=== PATIENT | female | born 1945 | race Caucasian/White ===

== ENCOUNTER → 2021-04-24 12:30 | Outpatient (CLI) | payer MEDICARE, OTHER, SELFPAY ==
--- NOTE | 2021-04-24 | DI.US.S_ITS ---
PROCEDURE: US RENAL COMPLETE INDICATIONS: CHRONIC KIDNEY DISEASE STAGE 3B TECHNIQUE: Real-time scanning was performed of the kidneys and bladder, with image documentation. COMPARISON: None. FINDINGS: Kidneys: Kidneys are normal in size. Right kidney measures 9.0 cm long; left kidney measures 9.6 cm long. Right renal cortical thickness is 1.2 cm; left renal cortical thickness is 1.1 cm. Renal cortical echotexture is normal. No hydronephrosis or nephrolithiasis. No suspicious solid mass lesions. Bladder: Pre-void bladder volume is 134 mL. Post-void residual is 0 mL. Pre-void images demonstrate no intraluminal masses or stones. On pre-void images, bilateral ureteral jets are noted with color Doppler interrogation. (Of note, ureteral jets may not be detectable in up to 25% of cases due to insufficient differences in specific gravity between ureteral and bladder urine). Miscellaneous: No free pelvic fluid. IMPRESSION: Normal size kidneys with no evidence of hydronephrosis. Dictated by: Steve Yanes M.D. on 04/24/2021 at 14:12 Approved by: Steve Yanes M.D. on 04/24/2021 at 14:15
[2021-04-24 13:56] LABS: Add Manual Diff / Slide Review NO; Basophils Absolute Auto 100 /uL (0-100); Eosinophils Absolute Auto 500 /uL (0-450); Eosinophils Percent Auto 6.3 % (2-4); Hematocrit 35.7 % (36-46); Hemoglobin 11.7 g/dL (12.0-16.0); Lymphocytes Absolute Auto 1500 /uL (1100-4500); Lymphocytes Percent Auto 19.4 % (25-40); Mean Corpuscular HGB Conc 32.7 % (30-36); Mean Corpuscular Hemoglobin 30.5 PG (26-34); Mean Corpuscular Volume 93.3 fL (80-100); Monocytes Absolute Auto 600 /uL (0-900); Monocytes Percent Auto 7.7 % (3-14); Neutrophils Absolute Auto 5100 /uL (1500-7000); Neutrophils Percent Auto 65.6 % (50-75); Platelet Count 274 X10^3/uL (150-400); Red Blood Cell Count 3.83 X10^6/uL (4.0-5.2); Red Cell Distribution Width 13.7 % (11.6-14.8); White Blood Cell Count 7.8 X10^3/uL (4.5-11.0)
[2021-04-24 14:14] LABS: Albumin 4.2 g/dL (3.5-5.0); BUN Creatinine Ratio 19.8 (6-22); Blood Urea Nitrogen 33 mg/dL (7-17); Calcium 9.6 mg/dL (8.4-10.2); Carbon Dioxide 21 mmol/L (22-32); Chloride 109 mmol/L (98-107); Estimated Glomerular Filt Rate 29.8 mL/min (>60); Glucose 103 mg/dL (80-110); HEMOLYSIS < 15 (0-50); Phosphorous 4.4 mg/dL (2.8-4.1); Potassium 5.1 mmol/L (3.4-5.1); Sodium 138 mmol/L (137-145)
[2021-04-25 06:18] LABS: Parathyroid Hormone Int 54 pg/mL (15-65)
== END ==
PROVIDERS: Family Provider Family Medicine; PCP Physician Assistant Medical; Referring Provider Internal Medicine Nephrology; Visit Provider Internal Medicine Nephrology
DX: N18.32 Chronic kidney disease, stage 3b (principal)
CPT/HCPCS: 36415; 76770; 80069; 83970; 85025

== ENCOUNTER → 2021-07-09 12:27 | Outpatient (CLI) | payer MEDICARE, OTHER, SELFPAY ==
--- NOTE | 2021-07-09 12:39 | DIET.PN1 ---
Dietary Progress Note Assessment: 75y F attending RD visit for help with diet to support her new diagnosis of Chronic Kidney Disease stage 3. Pt has osteoarthritis, took Aleve daily for 20y, has preDM (FBG 101) took metformin x20y even after BG was well controlled, accounts payable lead feels these are contributing to CKD3. Pt learned she had CKD3 in March 2021 and saw accounts payable lead went on WW and lost 70# x5y ago and kept off, weight loss efforts spurred by divorce and associated weight gain Pt has diverticulosis-when in flare has potatoes, rice, toast Pt of descent, many tomato based dishes. PCP reduced Spironolactone to 1/2 pill daily to protect renal health as pt has hyperkalemia over last two sets of renal labs, this medication can cause hyperkalemia. Usual Day: B: egg with piece toast, yogurt almost every morning c coffee c cream (was using non-dairy creamer) L: salad with chicken or beef occasionally fish and chips and hamburger D: meat c vegetable (broccoli, cauliflower, brussels sprout), stirfry, occasionally baked potatoes or oven fries loved Coke Zero but stopped drinking completely recently. Mattress Specialist suggested no avocado, tomato, potatoes, oranges, banana but no advice nutritionally beyond this. Labs: eGFR 31-38 L, Cr 1.4 H, K+ 5.3-5.5 H Nutrition Diagnosis: altered nutrition related laboratory values (K+, Cr, eGFR) r/t renal nutrition related knowledge deficit aeb pt newly dx CKD3, pt using advice on internet to try to piece together diet, eGFR 31-38 L, Cr 1.4 H, K+ 5.3-5.5 H. Interventions: 1. Using [employer] and [facility] Renal Diet Plate handout, educated pt on renal diet factors specific to her current labs: Focus on reduce added sodium in diet, discussed sources. Focus on limiting protein to 6oz meat and an egg or yogurt daily for now, will follow lab trends to further increase/decrease allowance. Focus on limiting potassium to 2,000mg daily avoiding salt substitutes with potassium. This is a difficult category for pt secondary to her traditional foods being heavily tomato based. Reviewed and documented potassium levels in variety of tomato products, pt feels confident she can work through her normal recipes to be compliant. Discussed parboiling potatoes for 10 minutes and throwing away water before using to reduce K+. Focus on removing phos food additives from diet. EER: 2,000mg sodium and potassium daily Monitoring/Evaluations: pt will work with material for several weeks, has repeat labs next Wednesday and will call to schedule f/u prn. Electronically Signed by: Alaina aSntos 07/09/21 12:39 Clinical Dietitian [address] [id number]
== END ==
PROVIDERS: Family Provider Family Medicine; PCP Physician Assistant Medical; Referring Provider Physician Assistant Medical; Visit Provider Physician Assistant Medical
DX: N18.30 Chronic kidney disease, stage 3 unspecified (principal); R73.03 Prediabetes; Z71.3 Dietary counseling and surveillance; Z79.84 Long term (current) use of oral hypoglycemic drugs
CPT/HCPCS: 97802

== ENCOUNTER → 2022-01-30 13:41 | Outpatient (CLI) | payer MEDICARE, OTHER, SELFPAY ==
--- NOTE | 2022-01-30 | DI.CT.S_ITS ---
PROCEDURE: CT UE LT WO CON INDICATIONS: Pain in left shoulder TECHNIQUE: Noncontrast 1-1.5 mm thick sections acquired from the acromioclavicular joint to the inferior scapula, with coronal and sagittal reformatting. COMPARISON: None. FINDINGS: Image quality: Excellent. Bones: Moderate to severe glenohumeral joint osteoarthritic changes are seen with near complete loss of joint space, extensive subchondral sclerosis and cyst formation and prominent inferior marginal osteophyte formation. Mild to moderate acromioclavicular joint osteoarthritic changes are seen with joint space narrowing and subchondral sclerosis. No acute fracture or dislocation. No suspicious intraosseous lesion. Visualized left upper ribs are intact. Soft tissues: No significant joint effusion or calcified intra-articular loose body is seen. There is no abnormal soft tissue calcifications. No gross full-thickness rotator cuff tendon rupture. Mild supraspinatus muscle atrophy is seen on sagittal images. No left axillary lymphadenopathy by size criteria. Visualized left lung field is clear. IMPRESSION: 1. Moderate to severe glenohumeral joint osteoarthritis and mild to moderate acromioclavicular joint osteoarthritis. No fracture or dislocation. No suspicious bony lesion. 2. No full-thickness rotator cuff tendon rupture. Mild supraspinatus muscle atrophy. No significant joint effusion. No abnormal soft tissue calcifications. Dictated by: Rui Cloud M.D. on 01/30/2022 at 15:08 Approved by: Rui Cloud M.D. on 01/30/2022 at 15:16
== END ==
PROVIDERS: Family Provider Family Medicine; PCP Physician Assistant Medical; Referring Provider Orthopaedic Surgery Foot and Ankle Surgery; Visit Provider Orthopaedic Surgery Foot and Ankle Surgery
DX: M25.512 Pain in left shoulder (principal)
CPT/HCPCS: 73200

== ENCOUNTER → 2022-02-26 12:57 | Outpatient (CLI) | payer MEDICARE, OTHER, SELFPAY ==
[2022-02-26 13:33] LABS: Add Manual Diff / Slide Review NO; Basophils Absolute Auto 100 /uL (0-100); Basophils Percent Auto 0.8 % (0-2); Eosinophils Absolute Auto 500 /uL (0-450); Hematocrit 35.7 % (36-46); Hemoglobin 11.7 g/dL (12.0-16.0); Lymphocytes Absolute Auto 1300 /uL (1100-4500); Lymphocytes Percent Auto 16.7 % (25-40); Mean Corpuscular HGB Conc 32.7 % (30-36); Mean Corpuscular Hemoglobin 30.3 PG (26-34); Mean Corpuscular Volume 92.6 fL (80-100); Monocytes Absolute Auto 700 /uL (0-900); Monocytes Percent Auto 8.3 % (3-14); Neutrophils Absolute Auto 5400 /uL (1500-7000); Neutrophils Percent Auto 68.2 % (50-75); Platelet Count 258 X10^3/uL (150-400); Red Blood Cell Count 3.86 X10^6/uL (4.0-5.2); Red Cell Distribution Width 13.7 % (11.6-14.8); White Blood Cell Count 7.9 X10^3/uL (4.5-11.0)
[2022-02-26 15:04] LABS: BUN Creatinine Ratio 20.5 (6-22); Blood Urea Nitrogen 30 mg/dL (7-17); Calcium 9.5 mg/dL (8.4-10.2); Carbon Dioxide 26 mmol/L (22-32); Chloride 106 mmol/L (98-107); Estimated Glomerular Filt Rate 37 mL/min (>60); Glucose 107 mg/dL (80-110); HEMOLYSIS < 15 (0-50); Potassium 4.8 mmol/L (3.4-5.1); Sodium 139 mmol/L (137-145)
== END ==
PROVIDERS: Family Provider Family Medicine; PCP Physician Assistant Medical; Referring Provider Orthopaedic Surgery; Visit Provider Orthopaedic Surgery
DX: Z01.812 Encounter for preprocedural laboratory examination (principal)
CPT/HCPCS: 36415; 80048; 85025

== ENCOUNTER → 2022-03-24 11:00 | Outpatient (CLI) | payer MEDICARE, OTHER, SELFPAY ==
[2022-03-24 11:33] LABS: COVID19 -Nasal RAPID Negative (Negative)
== END ==
PROVIDERS: Family Provider Family Medicine; PCP Physician Assistant Medical; Referring Provider Orthopaedic Surgery; Visit Provider Orthopaedic Surgery
DX: Z20.822 Contact with and (suspected) exposure to COVID-19 (principal)
CPT/HCPCS: 87635; C9803

== ENCOUNTER 2022-03-25 09:12 | Day surgery (SDC) | payer MEDICARE, OTHER, SELFPAY ==
[2022-03-18 10:50] VITALS: BMI 33.3
[2022-03-25] VITALS (10 sets, daily range): BP systolic 91–162; BP diastolic 60–99; PULSE 53–81; RESP 12–96; TEMP 35.8–36.6; O2SAT 94–98; BMI 33.3
--- NOTE | 2022-03-25 06:00 | DI.RAD.S_ITS ---
PROCEDURE: XR SHOULDER LT 1V INDICATIONS: total left shoulder TECHNIQUE: 1 views of the shoulder were acquired. COMPARISON: [facility], CR, XR SHOULDER 2+ VIEWS LEFT, 07/17/2021, 10:47. FINDINGS: Bones: Patient is status post left shoulder arthroplasty. Shoulder alignment is anatomic. Mild to moderate acromioclavicular joint osteoarthritic changes are seen. No suspicious bony lesions. Visualized ribs appear intact. Soft tissues: No suspicious soft tissue calcifications. IMPRESSION: Patient is status post left shoulder arthroplasty with anatomic left shoulder alignment. No fracture or dislocation. Acromioclavicular joint osteoarthritis. Dictated by: Rui Cloud M.D. on 03/25/2022 at 14:33 Approved by: Rui Cloud M.D. on 03/25/2022 at 14:35
[2022-03-25] MEDS: ACETAMINOPHEN 325 MG TABLET 975 MG PO (09:54)
[2022-03-25] MEDS: LACTATED RINGERS 1,000 ML 42 ML IV (09:59)
--- NOTE | 2022-03-25 10:45 | PM.PREOP ---
Pre-operative Note COVID-19 COVID-19 status: Negative Result date/Date tested (Pos, Neg/Pending): 03/24/22 Interval Note History & Physical reviewed/Exam performed by Physician: Yes Changes to H&P: No
--- NOTE | 2022-03-25 11:48 | SUR.PREOP ---
Block start time 1127. Monitoring initiated and maintained throughout procedure. Oxygen and medications given by anesthesiologist. Patient remained stable throughout procedure, no adverse reactions noted. Block end time 1140. Pt left for OR in stable condition.
[2022-03-25] MEDS: CEFAZOLIN 2 GM/20 ML SYRINGE IV (11:55)
[2022-03-25] MEDS: TRANEXAMIC ACID 1,000 MG VIAL 2000 MG INJ ×2 (12:01→13:29)
--- NOTE | 2022-03-25 12:18 | PM.PROC.1 ---
Procedures Date/Time Date of procedure: 03/25/22 Time of procedure: 11:30 General Procedure description: Ultrasound guided interscalene brachial plexus nerve block for post op pain control after left total shoulder arthroplasty by Dr. Alvarez. Risk and benefits of procedure discussed with patient. ASA monitoring applied to patient. O2 given via nasal cannula. 1 mg Versed and 50 mcg fentanyl given for procedural sedation. Skin site was prepped with chlorhexidine and allowed to fully dry. Sterile gloves, mask, hat and probe cover were used to maintain sterility. 2% lidocaine and 30ga needle was used to make a small skin wheal at needle insertion site. Under ultrasound guidance, a 21ga 50mm Pajunk needle was directed into the interscalene groove (middle/anterior scalenes) near the brachial plexus. Patient reported no parasthesias. After negative aspiration, 20 mL mixture of 0.5% ropivicaine, 1% lidocaine and 10mg dexamethasone were injected around brachial plexus. Patient tolerated procedure well.
--- NOTE | 2022-03-25 12:19 | SUR.OPER ---
Beach chair with Schlein shoulder positioner. Lower body on padded OR bed. gel pad under buttocks. Head in foam padded head cradle, secured with straps. Non-operative arm secured <90 degrees abduction across abdomen with Schlein Positioner kit. Pillow under knees. Gel pad under bilateral heels. Safety belt at thigh. Cloth tape over blanket over lower legs.
[2022-03-25] MEDS: EPINEPHrine 1 MG/ML 0.15 MG INJ (12:32)
[2022-03-25] MEDS: BUPIVACAINE 0.5% (PF) VIAL 30 ML INJ (12:33)
[2022-03-25] MEDS: THROMBIN (RECOMBINANT) 5,000 UNIT VIAL 5000 UNIT TOP (12:37)
--- NOTE | 2022-03-25 13:38 | PM.OP.1 ---
Operative Date/Time/Diagnoses Date of procedure: 03/25/22 Time of procedure: 13:10 Pre-op diagnosis: Left shoulder osteoarthritis Post-op diagnosis: same Procedure & Clinicians Procedure: Left total shoulder replacement Same procedure as scheduled: Yes Indications: The patient has had progressively worsening left shoulder pain with radiographic changes consistent with arthritis. Non-operative management has failed and the patient has requested total shoulder replacement. The risks, benefits and alternatives to surgery were discussed with the patient prior to proceeding. Risks discussed included, but were not limited to, failure to relieve pain, stiffness, infection, nerve damage, deep venous thrombosis, pulmonary embolism, stroke, coma, heart attack, permanent paralysis and , as well as the potential need for eventual revision of the prosthetic. Surgeon: Johnny Alvarez Family Development Extension Specialist: Gladys Mccallum Click Yes if Unassisted: No Anesthesia Type: General, Peripheral nerve block and Local Operative Notes Findings: Severe osteoarthritis with central glenoid wear and a large inferior humeral osteophyte. Closure Type: primary Specimen(s): none sent Prosthetic devices, grafts, tissues, transplants, or devices: Implants used in this procedure manufactured by the [employer] and included a size 46 all-polyethylene pegged glenoid with E +polyethylene, a 46 mm x 16 mm neutral humeral head and a size 2 canal sparing stem. Applied: implant(s) Estimated Blood Loss (mL): 100 Blood products transfused: none Procedure in detail: The patient was seen in the pre-operative area, where the patient identified the left shoulder as the operative site and this was marked with my initials. The patient received pre-operative antibiotics, underwent an interscalene block, and was taken to the operating room and placed on the operative table in the supine position. After satisfactory anesthesia, a full ?time out? was performed. The patient was repositioned in the ?beach chair? position using a dedicated positioner. All pressure points were well padded, and the knees were slightly bent to prevent tension on the sciatic nerves. The left arm was prepared from the fingers to the base of the neck with ChloroPrep in the usual fashion and draped through sterile drapes. An approximately 15 cm incision was created, starting at the clavicle above the coracoid process and extended towards the deltoid insertion. The deltopectoral interval was used to access the shoulder. The cephalic vein was taken laterally. A self retaining retractor was placed. The ?three sisters? were identified and cauterized. The axillary nerve was palpated and protected throughout the case. The biceps was released from its groove and tenodesed over the top of the pectoralis major tendon. The subscapularis was released from the lesser tuberosity with a subscapularis peel and tagged for later repair. The shoulder was dislocated and a cutting guide was used for the proximal humeral osteotomy in 30 degrees of retroversion. Osteophytes were removed. The guide pin was placed after sizing the proximal humerus. The collar Reamer was used. The trial broach was placed for a number 2 canal sparing stem. A proximal humeral protector was then placed. We then removed the self-retaining retractor and placed retractors to access the glenoid. The subscapularis was released with a ?360 degree release? with care being taken to protect the axillary nerve with the inferior portion of this procedure. The remnant of labrum and biceps stump were removed. The appropriate size reamer was chosen with the glenoid sizer, and the guide pin placed. The glenoid was appropriately reamed. The guide for the peripheral holes was used and the center hole enlarged. The trial glenoid was placed with good stability. We then cemented the final implant into place after irrigating the peg holes and drying them with thrombin-soaked Gelfoam. We returned our attention to the humerus, a trial humeral head was applied and a trial reduction performed. Stability was checked with 50% posterior translation with spontaneous reduction, 40? external rotation at the side with the subscapularis held in the repaired position and about 70? internal rotation in the ?scare north fork position?. This was felt to be satisfactory and the appropriate implants were opened. Four holes were drilled along the humeral osteotomy and #2 Ethibond sutures placed for eventual subscapularis repair. The medial strand of the sutures was placed through the ring on the prosthetic. The humeral prosthetic was impacted into the humerus. The humeral head was applied when the stem was still slightly proud and impacted to both seat the head and fully seat the stem. The joint was relocated one final time. The joint was irrigated and the subscapularis repaired to the previously placed sutures using Wade-Pro sutures. The top of the subscapularis was closed to the leading edge of the supraspinatus with a figure of 8 #2 Ethibond to close the rotator interval. The deltopectoral interval was closed with interrupted 0 Vicryl. The subcutaneous layer was closed with 3-0 Vicryl, and the skin with a running 3-0 V-Lock suture and SteriStrips. An Aquacel Ag dressing was applied, the patient?s arm was placed in a sling, and the patient was taken to recovery having tolerated the procedure well. Complications: none Post-operative Condition: stable Disposition: PACU Plan for aftercare: The patient will be maintained on a standard total shoulder protocol. She may use her arm in front of her body below shoulder level to lift 1-2 lb. She will be seen in my office in 2 weeks. She will likely be discharged tomorrow morning.
[2022-03-25] MEDS: OXYCODONE IR 5 MG TABLET PO ×3 (13:58→22:29)
[2022-03-25] MEDS: LACTATED RINGERS 1,000 ML 100 ML IV (14:43)
--- NOTE | 2022-03-25 15:55 | PC.NURSE ---
Pt arrived from PACU @ 1414 Alert/Oriented, SpO2 98% RA Aquacell dsg to left shoulder CDI. Med @ 1530 w/oxycodone for discomfort, with good relief. IVF LR @ 100cc/hr infusing into the right hand via pump w/o incidence. Stable post op course. Call light w/in reach, bed alarm on for pt safety. Continue w/plan of care.
[2022-03-25] MEDS: DOCUSATE 100 MG CAPSULE PO (21:05)
[2022-03-25] MEDS: ASPIRIN EC 81 MG TABLET PO (21:05)
[2022-03-25] MEDS: HYDRALAZINE 25 MG TABLET PO (21:05)
[2022-03-25] MEDS: GABAPENTIN 300 MG CAPSULE PO (21:05)
[2022-03-25] MEDS: ACETAMINOPHEN 325 MG TABLET 650 MG PO (23:58)
[2022-03-26] VITALS (7 sets, daily range): BP systolic 130–151; BP diastolic 56–67; PULSE 53–59; RESP 16–18; TEMP 36–36.1; O2SAT 96–97
[2022-03-26] MEDS: HYDROMORPHONE 2 MG TABLET PO (03:42)
[2022-03-26] MEDS: OXYCODONE IR 5 MG TABLET PO (04:46)
[2022-03-26 06:04] LABS: Hematocrit 34.2 % (36-46); Hemoglobin 11.3 g/dL (12.0-16.0)
--- NOTE | 2022-03-26 06:52 | P.DS_ITS ---
History of Present Illness History of Present Illness Date Patient Seen: 03/26/22 Time Patient Seen: 06:53 Chief complaint: OPB Narrative: The history and physical is contained in the chart in a previously completed note. Please refer to that note for this information. Discharge Providers Provider Date of admission: March 25, 2022 Discharge Date: 03/26/22 Primary care physician: Carissa Shah PA-C Consults: 03/25/22 14:03 Consult to Discharge Planning Routine Comment: Consult to Physical Therapy Evaluate & Treat Comment: Physician Instructions: pendulums, PROM 90 FF, 0 Abd, 0 ER, IR to body Discharge provider: Johnny Alvarez MD Summary Hospital Course Discharge Diagnosis: 1. Left shoulder osteoarthritis 2. Post hemorrhagic anemia Hospital Course: The patient was admitted to the hospital and taken directly to the operating room on March 25, 2022. She underwent a left total shoulder replacement without complications. On postoperative day 1 she was comfortable and medically stable despite a mild post hemorrhagic anemia. The time of this dictation it is anticipated she will be able to discharge today. Status at Discharge Cognitive/behavioral status at discharge: at baseline, oriented Functional status at discharge: independent ambulation Overall status at discharge: patient is progressing back to baseline Time Spent with Patient Time spent: Less than 30 minutes Exam Vital Signs (past 8 hours): - 03/26/22 00:02 03/26/22 00:02 03/26/22 05:24 Temperature 96.8 F L 96.8 F L Pulse Rate 56 L 56 L 53 L Respiratory Rate 18 16 Blood Pressure 142/67 H 142/67 H 151/65 H Pulse Oximetry 97 96 Oxygen Flow Rate 0 Oxygen Delivery Method Room Air Oxygen Flow Rate 0 Narrative Exam Narrative: Left shoulder wound is dressed with no drainage on the bandage. Light touch is intact in the radial, ulnar, median, muscular cutaneous, and axillary nerve distribution. She can extend her thumb, abduct her thumb, abduct her fingers and can fire her biceps and deltoid. Objective Labs Result Diagrams: 03/26/22 05:45 Labs: Laboratory Results - last 24 hr 03/26/22 05:45 Hgb 11.3 L Hct 34.2 L PFSH Medical History (Updated 03/20/22 @ 09:38 by Sara De Jesus RN) Anesthesia complication Arthritis Carpal tunnel syndrome (~1997) Chronic back pain (~1990) CKD stage G3b/A1, GFR 30-44 and albumin creatinine ratio <30 mg/g Colon polyps (~1998) Diabetes mellitus (~2002) Diverticular disease (~2016) Diverticulitis Edema Fibroids (~1995) Fractures (~2002) Hearing loss (~2014) History of chicken pox History of headache History of skin cancer (~2009) HLD (hyperlipidemia) Kidney stones (~1968) Menstrual bleeding problem (~1995) Mumps Neuropathy Osteoarthritis Pain Pelvic cyst Plantar warts (~1959) Pneumonia Shoulder pain (~2007) Surgical History (Updated 03/19/22 @ 11:01 by Sara De Jesus RN) H/O laminectomy (~1990) H/O nephrolithotomy with removal of calculi (~1967) H/O tubal ligation (~1984) H/O: hysterectomy (~1997) History of cataract extraction (~2017) History of revision of total replacement of right hip joint (~2013) History of total right knee replacement (~04/03/15) Hx of cervical discectomy (11/05/14) Hx of tonsillectomy (~1946) Status post right hip replacement (~1990) Family History (Updated 06/27/19 @ 15:39 by Alla Benton CMA) Father Cancer Mother Cancer Social History (Updated 06/27/19 @ 15:37 by Alla Benton CMA) marital status: household members: none pets and animals: Yes (CAT) education level: college occupational status: other yousuf/amish: Quaker travel history: other seatbelt use: always water heater temp set < 120 deg: Yes working smoke detector in home: Yes fire extinguisher in home: Yes carbon monox detector in home: Yes firearms in home: No do you feel safe at home: Yes Smoking Status: Never smoker alcohol intake: current substance use type: does not use during the past year weight has: remained stable well-balanced diet: daily or most days daily servings fruits/ve-4 caffeine: Yes (1-2 DRINKS PER DAY) eating out: 1-3 times/week Type(s) of exercise: walking and other frequency: 5-6 times per week duration: 15-30 minutes/day additional social history: Physical Activities: Line dancing and yard work Wearing hearing aids Discharge Assessment & Plan Assessment and Plan Assessment: Stable postoperative day 1 status post left total shoulder replacement. She has a mild post hemorrhagic anemia which should resolve spontaneously. Plan of Treatment: Discharge today. Follow up my office in 10-14 days. She has been instructed in the use of low-dose aspirin for 2 weeks for DVT prophylaxis and the use of Tylenol and oxycodone for pain relief. A prescription for oxycodone has been called into her pharmacy at [facility] in [place]. Discharge Plan Discharge Plan Patient Disposition: Home Discharge orders & Medications Discharge Orders: Discharge (Order); Ordered 03/26/22 Ordered By: Johnny Alvarez Prescriptions: New acetaminophen 325 mg Tablet 650 mg PO Q6HR Qty: 100 0RF aspirin 81 mg Tablet,Delayed Release (/Ec) 81 mg PO BID Qty: 30 0RF oxycodone 5 mg Tablet 5 mg PO Q4H PRN (Reason: Pain, Moderate (4-6)) Qty: 40 0RF Continued spironolactone 25 mg tablet 12.5 mg PO DAILY metoprolol succinate 25 mg tablet extended release 24 hr 25 mg PO BID bisoprolol fumarate 10 mg tablet 10 mg PO BID hydralazine 25 mg tablet 25 mg PO SEEINSTR Rx Instructions: Pt takes 37.5mg bid, 25mg @ bedtime gabapentin 300 mg capsule 300 mg PO BEDTIME ezetimibe 10 mg Tablet 10 mg PO DAILY Probiotic 3 billion cell Capsule 3,000 mmu cells PO DAILY Rx Instructions: administer with a meal psyllium husk 0.4 gram Capsule 0.4 g PO DAILY Follow up/Referrals: Johnny Alvarez MD [Physician] - 2 Weeks (Follow up with Dr Alvarez on 04/06/2022 @ 1:00 pm at [facility] office in [place].) Carissa Shah PA-C [Primary Care Provider] - Diet/Activity/Treatments Diet: Diet as Tolerated and Carb-consistent/Diabetic Activity: You may use your left hand in front of your body below shoulder level to lift 1-2 lb. Cold/Heat Therapy: You may apply ice to the left shoulder for 15 minutes every hour as needed for pain control. Skin/Wound/Dressing Care Report to your healthcare provider any signs of infection, such as:: chills, fever, night sweats, increased pain, unusual drainage and unusual redness Dressing: You may shower with the dressing in place. Do not remove the dressing until your follow-up. If the central strip of the dressing becomes saturated with either water or blood, please call the office to have it evaluated. Visit Report/Discharge Packet Instructions: DI for Shoulder Replacement Stand Alone Forms: Surgery Discharge Discharge Data Primary Care Provider: Carissa Shah Attending Provider: Johnny Alvarez
--- NOTE | 2022-03-26 08:52 | PT.IIE ---
Current Diagnoses Primary osteoarthritis, left shoulder (03/25/22) Surgery Performed Operation Date: 03/25/22 11:00 Actual Procedures p Total Shoulder Arthroplasty(Left) - Johnny Alvarez MD Surgical History (Last Updated 03/19/22 @ 11:01 by Sara De Jesus RN) H/O laminectomy (~1990) H/O nephrolithotomy with removal of calculi (~1967) H/O tubal ligation (~1984) H/O: hysterectomy (~1997) History of cataract extraction (~2017) History of revision of total replacement of right hip joint (~2013) History of total right knee replacement (~04/03/15) Hx of cervical discectomy (11/05/14) Hx of tonsillectomy (~1946) Status post right hip replacement (~1990) Medical History (Last Updated 03/20/22 @ 09:38 by Sara De Jesus RN) Anesthesia complication Arthritis Carpal tunnel syndrome (~1997) Chronic back pain (~1990) CKD stage G3b/A1, GFR 30-44 and albumin creatinine ratio <30 mg/g Colon polyps (~1998) Diabetes mellitus (~2002) Diverticular disease (~2016) Diverticulitis Edema Fibroids (~1995) Fractures (~2002) Hearing loss (~2014) History of chicken pox History of headache History of skin cancer (~2009) HLD (hyperlipidemia) Kidney stones (~1968) Menstrual bleeding problem (~1995) Mumps Neuropathy Osteoarthritis Pain Pelvic cyst Plantar warts (~1959) Pneumonia Shoulder pain (~2007) Physical Therapy Inpatient Evaluation/Re-Eval M1 PT/OT-IP Prior Functional Status Start: 03/26/22 12:46 Freq: NEEDED Status: Active Protocol: Document 03/26/22 08:52 AB (Rec: 03/26/22 13:53 AB [id number]) Medical Review Prior Functional Status Medical History Reviewed Yes Communication able to make needs known Mobility and Gait pt stated that she is modified independent with all mobilities and ambulation without AD Social History Household Members none Living Arrangements House Number of Floors (Floors) One Floor Number of Stairs To Enter/Railing? 2 steps B rails to enter Home Environment Tub/Shower Additional Social History Comment pt's daughter will stay with pt to assist her as long as needed pt plans to sleep on her recliner M2 PT-IP Current Condition Start: 03/26/22 12:46 Freq: NEEDED Status: Active Protocol: Document 03/26/22 08:52 AB (Rec: 03/26/22 13:53 AB [id number]) Physical Therapy Current Condition Current Condition Evaluation Date 03/26/22 Treatment Diagnosis s/p L TSA; difficulty in walking Onset Date 03/25/22 M3 PT-IP Subjective Start: 03/26/22 12:46 Freq: NEEDED Status: Active Protocol: Document 03/26/22 08:52 AB (Rec: 03/26/22 13:53 AB [email or web address]) Subjective Physical Therapy Visit Type Type Initial Evaluation Visit Start Time 08:52 Visit Stop Time 09:40 Total Visit Minutes 48 Number of STUDENT WORKER Visits 0 Physical Therapy Visit Comments Patient Comments agreeable to do PT Therapy Pain Assessment Pain When Pain Assessed At Rest Pain Present Pain Present Pain Reported Location Left Shoulder Intensity 5 Scale Used Numeric (0 - 10) Pain Management Techniques Distraction,Modification of Treatment,Re-positioning, Timing of Activity with Medications M4 PT-IP Mobility and Gait Start: 03/26/22 12:46 Freq: NEEDED Status: Active Protocol: Document 03/26/22 08:52 AB (Rec: 03/26/22 13:53 AB [id number]) PT-Bed Mobility Assessment Supine to Sit Supine to Sit Standby Assistance PT-Transfer Assessment Sit to and From Stand Sit to and from Stand Standby Assistance,1 Person Assistance Equipment Transfer Assistive Device None,Gait Belt Orthotic/Prosthetic Devices or Brace: Yes Transfers Transfer Destination Chair Transfer Technique Stand Step Pivot Transfer Ability Level of Assist Standby Assistance,Use of Upper Extremities Comments Mobility Comments educated pt on shoulder precautions, weight bearing restrictions, pendulum exercises, elbow/hand/wrist exercises. Daughter arrived. and caregiver training initiated. pt completed supine to sit from bed SBA. able to sit on EOb SBA. sit to stand sBA and step transfer to the chair SBA. educated daughter on sling management and completed safely. pt completed elbow/hand/wrist exercises, attempted pendulum and able to assume position but unable to fully relax LUE to complete pendulum exercise. educated pt and daugther for dressing/ ADL techniques. pt ambulated to the stairs without AD SBA ~ 125 ft. presensts with antalgic gait but without LOB. daughter stated that pt had previous hips and knee surgeries. completed up/down steps using 1 rail SBA. ambulated back to her room and positioned on chair. pt and daughter without further concerns. call light within reach. Gait Assessment Gait Gait Assistance Required: Standby Assistance Distance (Feet) 125 Able to Maintain Weight Bearing Status Yes During Gait Assistive Devices Assistive Device None,Gait Belt Orthotic/Prosthetic Devices or Brace: Yes Gait Deviations General Gait Pattern Antalgic,Decreased Stride Length,Decreased Feet Clearance Factors Limiting Gait Function Factors Limiting Gait Function Decreased Activity Tolerance, Decreased Strength,Limited Range of Motion,Pain,Poor Balance Stair Climbing Assessment Evaluation Level of Assist On Stairs Standby Assistance Devices Stair Climbing Assistive Devices Left Railing,Right Railing Technique/Endurance Stair Climbing Direction Ascend and Descend Stair Climbing Technique Step to Step Number of Steps Climbed 3 Query Text: Stair Climbing Set # Repetitions (reps) 1 PT-Balance Assessment Sitting Balance and Reactions Static Sitting Balance Ability Normal Dynamic Sitting Balance Ability Normal Standing Balance and Reactions Static Standing Balance Ability Good Dynamic Standing Balance Ability Good Device Used without AD M5 PT-IP Objective Assessments Start: 03/26/22 12:46 Freq: NEEDED Status: Active Protocol: Document 03/26/22 08:52 AB (Rec: 03/26/22 13:53 AB [id number]) Orientation Orientation/Cognition Level of Alertness Alert Orientation Name,Age,Birthday,Month,Date, Year,Day of Week,Place, Situation Language Function Ability No Deficits Noted Safety Awareness Understands Safety Issues Memory Description No Deficits Noted Gross Range of Motion Lower Extremity ROM Assessment Within Functional Limits Strength Lower Extremity Strength Assessment Within Functional Limits Sensation Assessment Sensation Gross Sensation WNL Muscle Tone Muscle Tone WNL Yes M6 PT-IP Treatment Start: 03/26/22 12:46 Freq: NEEDED Status: Active Protocol: Document 03/26/22 08:52 AB (Rec: 03/26/22 13:53 AB [email or web address]) Physical Therapy Treatment Education Education Provided Precautions,Weight Bearing Status,Post-Op Packet,Safety M7 PT-IP Assessment and Plan Start: 03/26/22 12:46 Freq: NEEDED Status: Active Protocol: Document 03/26/22 08:52 AB (Rec: 03/26/22 13:53 AB [email or web address]) PT Summary Assessment and Plan Potential Rehabilitation Potential Good Status of Condition at Evaluation Stable Summary Impairments Pain,ROM,Strength,Balance, Coordination,Sensation,Tone, Cognition,Bed Mobility, Transfers,Gait,Activity Tolerance Assessment Summary pt requiring SBA with mobility without AD. daughter will assist pt at home and caregiver training conducted. pt may go home when medically stable. Goals Bed Mobility Goal Independent Transfer Goal Independent Gait Goal Independent Gait Distance 250 Other Goals up/down 2 steps 1 rail mod I Days to Meet Goals 5 Frequency of Treatment Frequency Of Treatment Twice a Day Treatment Plan Physical Therapy Treatment Plan Bed Mobility Training,Transfer Training,Gait Training, Therapeutic Exercise,Balance Retraining,Post Op Education, Discharge Planning,Hot or Cold Pack,Neuromuscular Re-ed, Coordination Retraining,Manual Therapy Precautions Shoulder Precautions Sling,PROM,Internal Rotation to Body,No External Rotation, No Abduction,Forward Flexion to 90 degrees,Pendulums Weight Bearing Status Weight Bearing Status Non-Weight Bearing Allowed Weight Bearing Amount (enter % LUE NWB or #) (%) Recommendations To Nursing Amount of Assist Needed Standby Assistance Discharge Recommendations PT Discharge Recommendations Home with Assistance, Outpatient PT Transportation Needs at Discharge Private Vehicle
[2022-03-26] MEDS: METOPROLOL ER 25 MG TABLET PO (09:19)
[2022-03-26] MEDS: SPIRONOLACTONE 25 MG TABLET 12.5 MG PO (09:26)
[2022-03-26] MEDS: DOCUSATE 100 MG CAPSULE PO (09:26)
[2022-03-26] MEDS: ASPIRIN EC 81 MG TABLET PO (09:27)
[2022-03-26] MEDS: EZETIMIBE 10 MG TABLET PO (09:33)
[2022-03-26] MEDS: HYDRALAZINE 25 MG TABLET 37.5 MG PO (09:36)
--- NOTE | 2022-03-26 11:31 | PC.NURSE ---
Satisfactory post op course. Left arm in sling. Med at 0900 for discomfort, Worked w/PT D/C orders recieved HL discontinued intact, D/C instructions given w/understanding. Escorted by staff via W/C to waiting vehicle.
== END 2022-03-26 11:20 | disposition home or self-care (01) ==
LOC: OR 09:14 → AC 09:15
PROVIDERS: Family Provider Family Medicine; PCP Physician Assistant Medical; Referring Provider Orthopaedic Surgery; Visit Provider Orthopaedic Surgery
PROC: (CPT 23472; principal; 2022-03-25 11:00)
DX: M19.012 Primary osteoarthritis, left shoulder (principal); N18.9 Chronic kidney disease, unspecified; D11.9 Benign neoplasm of major salivary gland, unspecified; I10 Essential (primary) hypertension; E78.5 Hyperlipidemia, unspecified
CPT/HCPCS: 23472; 36415; 64450; 73020; 85014; 85018; 97161; 97530; C1776; J0171; J0690; J1100; J2250; J2405; J2704; J3010

== ENCOUNTER → 2023-10-28 11:11 | Outpatient (CLI) | payer MEDICARE, OTHER, SELFPAY ==
[2022-03-25 14:11] VITALS: BMI 33.3
--- NOTE | 2023-10-28 11:14 | DI.CT.S_ITS ---
PROCEDURE: CT KIDNEY URETER BLADDER (KUB) INDICATIONS: Urinary tract infection, site not specified TECHNIQUE: Axial sections were acquired from the lung bases to the pubic symphysis. Coronal and sagittal reformats were performed. For radiation dose reduction, the following was used: automated exposure control, adjustment of mA and/or kV according to patient size. COMPARISON: None. FINDINGS: Lower thorax: The lung bases are clear. Heart size normal. Small hiatal hernia noted. Liver: Normal in size and attenuation. No contour deformity present. Biliary system: Calcified stones noted in the lumen of the gallbladder. No pericholecystic inflammatory change. No intra or extrahepatic bile duct dilation. Pancreas: Unremarkable without mass or inflammation evident. Spleen: Normal in size and density. Adrenals: Normal morphology and density. Reproductive system: Hysterectomy. Urinary system: Normal renal size and attenuation. No renal calculi, hydronephrosis, or solid mass present. Urinary bladder unremarkable. Gastrointestinal system: The bowel is unremarkable without evidence of bowel obstruction or inflammation. The stomach appears unremarkable. Multiple diverticula arise from the colon without evidence of diverticulitis. Appendix: No findings to suggest acute appendicitis. Peritoneal spaces: No mesenteric or retroperitoneal adenopathy. No free air. No free fluid. Vasculature: The IVC, aorta and iliac vasculature are unremarkable. Abdominal wall: Abdominal wall intact without evidence of ventral or inguinal hernias. Musculoskeletal: Normal bone mineralization. Degenerative disc disease and arthropathy noted in lower lumbar spine. Bilateral L5 pars defects resulting in grade 2 anterior spondylolisthesis. Significant stenosis noted at L2-3 and L5-S1 No acute fractures. IMPRESSION: 1. Unremarkable noncontrast appearance of the kidneys. No renal calculi or hydronephrosis. 2. Chronic findings detailed above, including grade 2 isthmic spondylolisthesis at L5-S1 Approved by: Darren Funes M.D. on 10/28/2023 at 18:07
== END ==
LOC: CT 11:12
PROVIDERS: Family Provider Family Medicine; PCP Physician Assistant Medical; Referring Provider Internal Medicine Infectious Disease; Visit Provider Internal Medicine Infectious Disease
DX: N39.0 Urinary tract infection, site not specified (principal); M43.16 Spondylolisthesis, lumbar region; K44.9 Diaphragmatic hernia without obstruction or gangrene; K57.90 Diverticulosis of intestine, part unspecified, without perforation or abscess without bleeding; Z90.710 Acquired absence of both cervix and uterus
CPT/HCPCS: 74176